=== PATIENT | male | born 1975 | race Two or more races ===

== ENCOUNTER 2023-04-03 18:42 | Emergency (ER) | payer OTHER ==
[~2023-04-03] VITALS: Ht 177.8 cm; Wt 87.5 kg
[2023-04-03] MEDS ORDERED: SYNJARDY 12.5-1 EACH PO (18:56)
[2023-04-03] MEDS ORDERED: NOVOLOG MI100 UNIT/2 SQ (18:56)
== END 2023-04-03 22:54 | disposition home or self-care (01) ==
LOC: ER 18:42
DX: S60.471A Other superficial bite of left index finger, initial encounter (principal); W55.01XA Bitten by cat, initial encounter; Y93.9 Activity, unspecified; Y92.9 Unspecified place or not applicable; Y99.9 Unspecified external cause status; Z91.013 Allergy to seafood